=== PATIENT | female | born 1945 | race Caucasian/White ===

== ENCOUNTER 2019-04-13 05:28 | Inpatient (IN) | payer OTHER ==
[2019-04-06 11:54] LABS: URINE BILIRUBIN NEGATIVE (Negative); URINE BLOOD NEGATIVE (Negative); URINE CLARITY CLEAR; URINE COLOR YELLOW; URINE GLUCOSE-RANDOM* NEGATIVE (Negative); URINE KETONES NEGATIVE (Negative); URINE LEUKOCYTES-REFLEX NEGATIVE (Negative); URINE NITRITE-REFLEX NEGATIVE (Negative); URINE PROTEIN (DIPSTICK) NEGATIVE (Negative); URINE SPECIFIC GRAVITY 1.015 (1.005-1.035); URINE UROBILINOGEN 0.2 E.U./dl (0.2-1.0)
[2019-04-06 12:19] LABS: HEMATOCRIT 40.4 % (37.0-47.0); HEMOGLOBIN 13.7 gm/dL (12.0-15.0); MCH 30.5 pg (26.0-34.0); MCHC 33.9 g/dL (28.0-37.0); RBC 4.49 mil/uL (4.20-5.00); RDW 13.7 % (10.5-14.5); WBC 10.6 thou/uL (4.0-11.0)
[2019-04-06 12:27] LABS: ALBUMIN 3.4 g/dL (3.4-5.0); CALCIUM 8.3 mg/dL (8.5-10.1); CREATININE 0.9 mg/dL (0.6-1.0); POTASSIUM 4.3 mmol/L (3.5-5.1)
--- NOTE | 2019-04-07 18:20 | EKG ---
[address] [address] ELECTROCARDIOGRAM REPORT Name: SEANSTEFANIE Room #: PRE [facility]#: [id number] ������������������ Admission: ������������������ Attend Phys: Rj Combs MD Discharge: ������������������ Date of : 45 Report #: [id number] ����������������������������������������������������������������� [id number] THIS REPORT FOR: //name// [facility] Test Date: 2019-04-06 Test Time: 12:18:32 Pat Name: STEFANIE ESTRADA Department: Room: Gender: F Embedded Linux Developer: ARLENE GARNETT : 1945 Requested By: jR Combs Order Number: [id number] MD: Eleno Pedro Measurements Intervals [place] Rate: 55 P: 47 NH: 179 QRS: -19 QRSD: 93 T: 72 QT: 410 QTc: 393 Interpretive Statements Sinus bradycardia Otherwise normal tracing No previous ECG available for comparison Electronically Signed On 04-07-2019 18:20:43 CDT by Eleno Pedro [email or web address] ��������������������������������������������� <ELECTRONICALLY SIGNED> ���������������������������������������� By: Eleno Pedro MD, [facility] ��������������������������������������������� 04/07/19 1820 1218 1218 Eleno Pedro MD, FACC /EPI
[~2019-04-13] VITALS: Ht 157.5 cm; Wt 97.5 kg
--- NOTE | ~2019-04-13 | O ---
[facility] [place] [address] [place] [address] OPERATIVE REPORT Name: STEFANIE ESTRADA Room #: 150-6 ADM IN M.R.#: [id number] Admission: 04/13/19 ������������������ Attend Phys: Rj Combs MD Discharge: ������������������ Date of : 45 Report #: [id number] THIS REPORT FOR: //name// CC: ANA ROCA Physician staff Rj Combs DATE OF SERVICE: 04/13/2019 PREOPERATIVE DIAGNOSIS: Right knee osteoarthritis. POSTOPERATIVE DIAGNOSIS: Right knee osteoarthritis. PROCEDURE: Right total knee arthroplasty using Navio robotic assistance. SURGEON: Rj Combs MD TICKET ATTENDANT: Enrique Arzate ANESTHESIA: LMA with an adductor canal block. IMPLANTS: [employer] size 6 narrow Legion cobalt chrome posterior stabilized femur, size 3 tibia, size 12 polyethylene, size 29 patella. TOURNIQUET TIME: 66 minutes. ESTIMATED BLOOD LOSS: 25 mL. COMPLICATIONS: None. SPECIMENS: None. CONDITION UPON LEAVING THE OPERATING ROOM: Stable. INDICATIONS FOR PROCEDURE: The patient is a 74-year-old female with right knee osteoarthritis who failed conservative measures for this and after discussion with her, she elected for right total knee arthroplasty. DESCRIPTION OF PROCEDURE: Risks, benefits, alternatives, complications were discussed in detail with the patient including but not limited to risk of anesthesia, risk of damage to nerves, arteries, blood vessels, risk for infection, bleeding, risk for continued knee pain and need for reoperation. Informed consent was obtained from the patient. Right knee appropriately marked in the preoperative holding area. Adductor canal block was placed by Anesthesia. IV Ancef was given for preoperative antibiotics. She was brought to the operating room and placed in supine position on operating room table. [address] [address] OPERATIVE REPORT Name: STEFANIE ESTRADA Room #: 150-6 [facility] IN M.R.#: [id number] Admission: 04/13/19 ������������������ Attend Phys: Rj Combs MD Discharge: ������������������ Date of : 45 Report #: [id number] LMA anesthesia was induced without complication. Tourniquet was placed on the right thigh. Right lower extremity was prepped and draped in normal sterile fashion. Timeout was performed properly identifying the patient and procedure as well as the instrumentation and implants. All in the operating room were in agreement. The right lower extremity was exsanguinated and tourniquet was inflated. Tourniquet time was 66 minutes. Standard midline approach to the knee was made with a 10 blade through the skin. Dissection was taken down sharply to the fascia and deep flaps were developed medially and laterally. Fresh 10 blade was used to make a medial parapatellar arthrotomy and the knee was inspected. There was severe medial compartment osteoarthritis with moderate patellofemoral osteoarthritis. It was decided to proceed with total knee arthroplasty. ACL and PCL were removed sharply. Reference pins were placed in the femur and the tibia and the knee was digitally mapped using the [employer] robotic system. We sized a size 6 narrow femur, a size 4 tibia, size 11 spacer. After acceptance of the intraoperative plan, a distal femoral cut was made with the Navio bur and the 4-in-1 cutting block was placed. The anterior, posterior chamfer cuts were made. After this, attention was turned to the tibia. Remainder of the menisci removed with Bovie cautery. Tibial resection guide was pinned in place using Navio system for placement and tibial resection was made. Flexion and extension gap was then checked and found to have good balance in flexion and extension. Tibia was sized, found to be a size 3. Size 3 tibial trial was placed and then punched. A size 6 femoral trial was placed and the box cut was made. This was then trialed with a size 11 and then a size 12 polyethylene. Size 12 polyethylene demonstrated 1-2 millimeter of laxity medially and laterally throughout range of motion. 9 mm was taken off the posterior surface of the patella and a size 29 patellar trial button was placed. Knee was taken through range of motion, found to be stable, found to have good patellar tracking. After this, trial components were removed. Bone ends were thoroughly irrigated with normal saline. A final size 3 tibia, size 6 narrow cobalt chrome Legion posterior stabilized femur and a size 29 patella were cemented in place using standard cementation techniques. While the cement cured, periarticular injection consisting of morphine, ropivacaine, epinephrine, Toradol was placed around the knee joint capsule. After the cement cured, tourniquet was deflated and hemostasis was obtained with Bovie cautery. A final size 12 polyethylene was placed. A gram of vancomycin was placed deep in the joint. Fascia was closed with 0 Vicryl, skin was closed with 2-0 Vicryl, 3-0 Monocryl. Dermabond and a YASIR dressing was applied. The patient tolerated the procedure well, went to recovery room under the care of anesthesia postoperatively. ��������������������������������������������� ���������������������������������������� By: ��������������������������������������������� [id number] Rj Combs MD /nt
[~2019-04-13 05:28] MED LIST: LEVOXYL100 MCG PO; OMEPRAZOLE40 MG PO; VOLTAREN GEL 1100 G2 TOP
[2019-04-13 07:34] VITALS: BP 122/55
[2019-04-13 15:52] VITALS: BP 142/55
[2019-04-13 17:03] VITALS: BP 137/39
[2019-04-13 17:48] VITALS: BP 138/52
--- NOTE | 2019-04-13 18:17 | NUR ---
RECEIVED PT APPROX 1600. A/O. DENIES PAIN. NO NOTED SOA. NO NV. PT RESTING IN BED. YASIR DRESSING CDI. POLLAR PACK ON. PT USES CPAP AT NIGHT. NO CONCERNS VOICED AT THIS TIME. WILL CONT. TO MONITOR.
[2019-04-13 20:44] VITALS: BP 108/44
--- NOTE | 2019-04-14 04:37 | NUR ---
ASSUMED PT CARE 1899. PT ALERT AND ORIENTED. REASSESSMENT COMPLETE. VSS. IV DRESSING C/D/I. REPORTS PAIN, SEE EMAR. DENIES N/V. POLAR PACK APPLIED. NEURO CHECK, INTACT. DAUGHTER AT BEDSIDE. CALL LIGHT WITHIN REACH. WILL CONTINUE POC UNTIL EOS.
[2019-04-14 05:07] VITALS: BP 103/50
[2019-04-14 06:08] LABS: HEMATOCRIT 35.6 % (37.0-47.0); HEMOGLOBIN 11.8 gm/dL (12.0-15.0); MCH 29.9 pg (26.0-34.0); MCHC 33.2 g/dL (28.0-37.0); MCV 90.1 fL (80.0-100.0); RBC 3.95 mil/uL (4.20-5.00); RDW 13.6 % (10.5-14.5); WBC 19.6 thou/uL (4.0-11.0)
[2019-04-14 08:30] VITALS: BP 118/54
[2019-04-14] MEDS ORDERED: ASPIR 8181 MG PO (11:28)
[2019-04-14] MEDS ORDERED: NEURONTIN 300300 M1 PO (11:28)
[2019-04-14 14:36] VITALS: BP 118/54
[2019-04-14 14:37] VITALS: BP 118/54
[2019-04-14 14:46] VITALS: BP 118/54
--- NOTE | 2019-04-14 14:56 | NUR ---
ASSESSMENT-PT LIVES IN A HOUSE WITH HER DTR. PT WILL NEED A ROLLER WALKER FOR HOME. PT DOES HER OWN ADLS. PROVIDER PLUS TO ISSUE PT ROLLER WALKER FOR HOME. DME OPTIONS OFFERED. PT HAS ANOTHER DTR IN [place]. PT HAS A C-PAP, SHOWER CHAIR AND STOOL RISER. FOLLOWING TO ASSIST WITH DC PLANNING.
[2019-04-14 15:09] VITALS: BP 118/54
== END 2019-04-14 15:29 | disposition home or self-care (01) | DRG 470 ==
LOC: PRE 05:28 → TBA 05:57 → 4E 05:57 → PRE 11:23 → 4E 15:45
PROVIDERS: ADMIT Orthopaedic Surgery
PROC: 8E0Y0CZ Robotic Assisted Procedure of Lower Extremity, Open Approach (ICD-10-PCS; principal; 2019-04-13)
PROC: 0SRC0J9 Replacement of Right Knee Joint with Synthetic Substitute, Cemented, Open Approach (ICD-10-PCS; principal; 2019-04-13)
DX: M17.11 Unilateral primary osteoarthritis, right knee (principal); Z88.2 Allergy status to sulfonamides
CPT/HCPCS: 10783; 50010; 50101; 50415; 50954; 51130; 51225; 51771; 53000; 53078; 53364; 54118; 56526; 56527; 56528; 57095; 57103; 57110; 57127; 57180; 62110; 62900; 64042; 70005